=== PATIENT | male | born 1980 | race Caucasian/White ===

== ENCOUNTER 2021-02-15 11:06 | Emergency (ER) | payer OTHER, SELFPAY ==
--- NOTE | ~2021-02-15 | XR_ITS ---
XR foot RT min 3V DATE: 02/15/2021 11:27 INDICATION: Inversion injury. Lateral pain. Patient heard a pop. TECHNIQUE: 4 views COMPARISON: None FINDINGS: There is slight plantar and prominent posterior calcaneal enthesopathy. There is osteoarthritis at the first metatarsophalangeal joint. No recent fracture or dislocation is detected. No periosteal reaction or bone destruction. IMPRESSION: Calcaneal enthesopathy Osteoarthritis at first metatarsophalangeal joint Reviewed, dictated and finalized at location A.
[2021-02-15 11:17] VITALS: BP 136/73; PULSE 84; RESP 18; TEMP 37.1; O2SAT 98
--- NOTE | 2021-02-15 11:26 | ED.LOWEXIN ---
HPI - Extremity Injury (Lower) General Chief Complaint: Extremity Injury, Lower Stated Complaint: Possible injury to the right Foot Time Seen by Provider: 02/15/21 11:26 Source: patient and RN notes reviewed Mode of arrival: ambulatory Limitations: no limitations History of Present Illness HPI Narrative: 40-year-old male presents to the [facility] with complaints of right lateral foot pain. Patient states that he rolled it last night. Tenderness to the lateral foot just distal to the lateral malleolus. Minor swelling noted without bruising, redness. Has full range of motion of the ankle. Sensation intact in all 5 toes lateral, medial and dorsal aspect. Positive pedal pulse noted. Refill under 2 seconds Related Data Home Medications Medication Instructions Recorded Confirmed Thyroid Medicine 02/15/21 hydroxychloroquine [Plaquenil] 200 mg PO DAILY 02/15/21 02/15/21 ibuprofen [Motrin] 800 mg PO BID 02/15/21 02/15/21 sulfasalazine 02/15/21 02/15/21 tofacitinib DAILY 02/15/21 Allergies Allergy/AdvReac Type Severity Reaction Status Date / Time No Known Allergies Allergy Verified 02/15/21 11:29 Review of Systems Review of Systems: All systems reviewed & are unremarkable except as noted in HPI and below Constitutional: Constitutional: Reports no additional constitutional complaints, Denies chills and Denies fever(s) Eyes: Eyes: Reports no additional eye complaints ENT: Reports system reviewed and no additional complaints, except as documented Cardiovascular: Cardiovascular: Reports no additional cardiovascular complaints Respiratory: Respiratory: Reports no additional respiratory complaints Musculoskeletal: Musculoskeletal: Reports as per HPI Comments: Right lateral foot pain Integumentary/Breasts: Skin/Breast: Reports system reviewed and no additional complaints, except as docu Neurologic: Reports system reviewed and no additional complaints, except as documented Psychiatric: Psychiatric: Reports no additional psychiatric complaints Allergic/Immunologic: Allergic/Immunologic: Reports no additional allergic/immunologic complaints [facility] Past Medical History Medical History Rheumatoid arthritis Surgical History Surgical History No significant past surgical history Comments At the time of my signature, I reviewed and agree with the nursing past medical, surgical, social, and family history. There is no relevant family history pertinent to the patient complaint. Exam Const: General: healthy appearing and no acute distress Nutritional Appearance: well nourished and obese Orientation/consciousness: patient oriented x3 Limitations: no limitations HENMT: Head: normal to inspection Neck: Neck: normal visual inspection, no lymphadenopathy and no meningeal signs Chest: Chest palpation & inspection: normal inspection of the chest Resp: Effort & Inspection: normal respiratory effort Cardio: Rate: regular rate Rhythm: regular rhythm Back/Spine/Pelvis: Back: no CVA tenderness Skin: General skin exam: normal color Rashes: no rashes Neuro: General: patient oriented x3 Extrem: General: normal to inspection Ankle/foot/toe images: 1. tenderness with mild swelling. No bruising or redness. No increased warmth. Course Course Emergency Course: Discharge instructions reviewed with patient, as well as provided in writing per nursing staff. The instructions also include specific and strict return/GO TO THE ER as well as f/u information. All questions have been answered, and the patient deny any further questions with discharge and discharge plan. Vital Signs Vital signs: Vital Signs Temperature 98.8 F 02/15/21 11:17 Pulse Rate 84 02/15/21 11:17 Respiratory Rate 18 02/15/21 11:17 Blood Pressure 136/73 02/15/21 11:17 Pulse Oximetry 98 02/15/21 11:17 Temperature 98.8 F
--- NOTE | 2021-02-15 11:27 | PC.NURSE ---
PT DECLINED ICE FOR COMFORT
== END 2021-02-15 11:51 | disposition home or self-care (01) ==
PROVIDERS: Emergency Provider Nurse Practitioner; PCP Family Medicine
DX: S93.601A Unspecified sprain of right foot, initial encounter (principal); S96.911A Strain of unspecified muscle and tendon at ankle and foot level, right foot, initial encounter; X50.9XXA Other and unspecified overexertion or strenuous movements or postures, initial encounter; M77.31 Calcaneal spur, right foot; M06.9 Rheumatoid arthritis, unspecified
CPT/HCPCS: 73630; 99213; G0463